=== PATIENT | female | born 1990 | race Two or more races ===

== ENCOUNTER 2018-10-05 11:05 | Observation (INO) | payer MEDICAID | END 2018-10-05 12:25 | disposition home or self-care (01) | DRG 563 | LOC: LDRP 11:05 | PROVIDERS: ADMIT Obstetrics & Gynecology; ATTEND Obstetrics & Gynecology | DX: O60.03 Preterm labor without delivery, third trimester (principal); Z3A.33 33 weeks gestation of pregnancy | CPT/HCPCS: 59025; 76815; 76817; 81002; G0378 ==

== ENCOUNTER 2018-11-09 19:21 | Observation (INO) | payer MEDICAID | END 2018-11-09 20:15 | disposition home or self-care (01) | DRG 566 | LOC: LDRP 19:21 | PROVIDERS: ADMIT Obstetrics & Gynecology; ATTEND Obstetrics & Gynecology | DX: O62.9 Abnormality of forces of labor, unspecified (principal); Z3A.38 38 weeks gestation of pregnancy | CPT/HCPCS: 59025; 81002; G0378 ==

== ENCOUNTER 2018-11-16 09:45 | Inpatient (IN) | payer MEDICAID ==
[~2018-11-16] VITALS: Ht 160 cm; Wt 83.9 kg
[2018-11-16] MEDS ORDERED: LACT. RINGERS/OXYTOCIN 20UNITS 1,000 ML IV SCH ×2 (10:02→17:02)
[2018-11-16] MEDS ORDERED: LIDOCAINE 2%HCL (LOCAL ANESTH.) INJ 20ML MDV ID PRN (10:15)
[2018-11-16] MEDS ORDERED: PENICILLIN G POT 5MIL/D5 50ML 50 ML IV ONE (10:15)
[2018-11-16] MEDS ORDERED: NALBUPHINE HCL 10 MG/1ml INJECTION IV PRN (10:15)
[2018-11-16] MEDS ORDERED: DERMOPLAST 60ML BOTTLE TOP PRN (10:15)
[2018-11-16] MEDS ORDERED: WITCH HAZEL-GLYCERIN PAD TOP PRN (10:15)
[2018-11-16] MEDS ORDERED: PHISODERM TOP SOLN 240ML BTL TOP PRN (10:15)
[2018-11-16] MEDS: LACTATED RINGER'S 1,000 ML IV SCH ×2 (10:15→18:02)
[2018-11-16 10:43] LABS: Basophils # (auto) 0 uL; Basophils % (auto) 0.7 % (0.0-2.0); Eosinophils # (auto) 0 uL; Eosinophils % (auto) 0.8 % (0.0-7.0); Hematocrit 39.8 % (36.0-46.0); Hemoglobin 13.4 g/dL (12.2-16.2); Lymphocytes # (auto) 2.5 uL; Mean Corpuscular Hemoglobin 29.4 pg (28.0-32.0); Mean Corpuscular Hgb Conc. 33.5 g/dL (32.0-36.0); Mean Corpuscular Volume 87.5 fL (80.0-100.0); Monocytes # (auto) 0.7 uL; Neutrophils # (auto) 2.9 uL; Neutrophils % (auto) 47.5 % (37.0-80.0); Nucleated Red Blood Cells % 0.1 %; Platelet Count (auto) 140 10^3/uL (140-450); Red Blood Cells 4.55 10^6/uL (4.0-5.20); Red Cell Distribution Width 14.6 % (11.8-14.3); White Blood Cell 6.2 10^3/uL (4.4-10.8)
[2018-11-16 11:01] LABS: Albumin 2.7 g/dL (3.4-5.0); BUN/Creatinine Ratio 9.2; Calcium 8.2 mg/dL (8.5-10.1); Potassium 3.6 mmol/L (3.5-5.1)
[2018-11-16 11:03] LABS: Bilirubin, Total 0.3 mg/dL (0.2-1.0); Urine Bacteria FEW /hpf (None Seen); Urine Blood Negative /uL (Negative); Urine Specific Gravity 1.015 (1.001-1.035); Urine WBC 26 /hpf (0 - 5)
[2018-11-16 11:05] LABS: INR 0.9 (0.9-1.15); Partial Thromboplastin Time 26.4 sec (23.78-33.04); Prothrombin Time 9.7 sec (9.27-12.13)
[2018-11-16] MEDS: PENICILLIN G POTASSIUM 2,500,000 UNITS in D5W 5% 50 ML IV SCH ×3 (14:32→22:15)
[2018-11-16] MEDS ORDERED: PROMETHAZINE HCL 25 MG/ML 1ML IM ONE (15:45)
[2018-11-16] MEDS ORDERED: PROMETHAZINE HCL 25 MG/ML 1ML IV ONE (16:00)
[2018-11-16] MEDS ORDERED: ePHEDrine SULFATE 50 MG/ML AMP IV ONE (16:45)
[2018-11-16] MEDS ORDERED: NALOXONE HCL 0.4 MG/ML VIAL IV ONE (16:45)
--- NOTE | 2018-11-16 20:00 | NUR ---
Teaching: Reviewed information in [facility] booklet with patient. Discussed benefits of and risks associated with not . Discussed different positions, proper latch, feeding cues, and baby-led . Provided information of medication side effects related to . All questions and concerns addressed at this time. Patient verbalized understanding of information. Patient encouraged to breastfeed. Benefits of and the risk of providing formula to infant was discussed. Patient verbalized understanding of the benefits and is aware of risk and insists on bottle-feeding, stating that she "will breastfeed tomorrow". Formula provided and instruction on formula preparation from the [facility] booklet reviewed with patient.
--- NOTE | 2018-11-16 21:02 | NUR ---
Ambulation: Patient OOB with standby assistance by RN. Patient ambulated to bathroom with steady gait. Patient able to void without difficulty. [facility] teaching provided with returned demonstration by patient. Clean gown provided and bed linen changed. Patient ambulated back to bed with steady gait and no distress noted.
[2018-11-16] MEDS: fentaNYL W ROPIVACAINE 150 ML EPI SCH (23:08)
[2018-11-16] MEDS: IBUPROFEN 600 MG TAB PO PRN (23:22)
[2018-11-17] MEDS: LACTATED RINGER'S 1,000 ML IV SCH (02:02)
[2018-11-17] MEDS: PENICILLIN G POTASSIUM 2,500,000 UNITS in D5W 5% 50 ML IV SCH ×2 (02:15→06:15)
[2018-11-17] MEDS: fentaNYL W ROPIVACAINE 150 ML EPI SCH (03:09)
[2018-11-17] MEDS: IBUPROFEN 600 MG TAB PO PRN ×6 (03:16→20:12)
[2018-11-17 03:20] VITALS: BP 121/57
[2018-11-17 11:00] VITALS: BP 114/55
[2018-11-17 15:00] VITALS: BP 133/62
[2018-11-17 19:00] VITALS: BP 118/56
--- NOTE | 2018-11-17 20:00 | NUR ---
Discharge: Discharge instructions given as ordered. Pt encouraged to follow up with [facility] as instructed. All questions and concerns addressed. Patient verbalized understanding. Medication reconciliation completed and copy given to patient. PT refuses all vaccinations. Patient encouraged to prepare to depart unit.
--- NOTE | 2018-11-17 20:10 | NUR ---
RX called into [facility] pharmacy, ordered by DEEPALI LEWIS, Ibuprofen 800mg Q8 hours PRN PAIN . #20
[2018-11-17 20:24] VITALS: BP 118/56
--- NOTE | 2018-11-17 20:24 | NUR ---
Discharge: Patient taken to vehicle via wheelchair with all personal belongings, accompanied by Nelsy Dunlap and family member. No distress noted at time of departure, no adverse changes in status since initial assessment.
[2018-11-19 14:11] LABS: RPR Non Reactive (Non Reactive)
== END 2018-11-17 20:24 | disposition home or self-care (01) | DRG 560 ==
LOC: LDRP 09:45
PROVIDERS: ADMIT Specialist; ATTEND Specialist
PROC: 10E0XZZ Delivery of Products of Conception, External Approach (ICD-10-PCS; principal; 2018-11-16)
DX: O69.81X0 Labor and delivery complicated by cord around neck, without compression, not applicable or unspecified (principal); O99.824 Streptococcus B carrier state complicating childbirth; Z37.0 Single live birth; Z3A.39 39 weeks gestation of pregnancy
CPT/HCPCS: 36415; 59025; 59409; 80053; 81001; 81002; 85025; 85610; 85730; 86592; 86850; 86900; 86901; 96361; 96365; 96374; G0378; J2540; J2590; J3010; J7060

== ENCOUNTER 2019-10-15 11:12 | Inpatient (IN) | payer MEDICAID ==
[~2019-10-15] VITALS: Ht 160 cm; Wt 76.1 kg
[2019-10-15] MEDS ORDERED: SODIUM CHLORIDE 0.9% 1,000 ML IVB ONE (11:50)
[2019-10-15 12:26] LABS: Basophils # (auto) 0 uL; Basophils % (auto) 0.5 % (0.0-2.0); Eosinophils # (auto) 0.1 uL; Eosinophils % (auto) 1.2 % (0.0-7.0); Hematocrit 34.2 % (36.0-46.0); Hemoglobin 11.1 g/dL (12.2-16.2); Lymphocytes # (auto) 2.2 uL; Lymphocytes % (auto) 42.4 % (10.0-50.0); Mean Corpuscular Hemoglobin 27.7 pg (28.0-32.0); Mean Corpuscular Hgb Conc. 32.6 g/dL (32.0-36.0); Monocytes # (auto) 0.5 uL; Monocytes % (auto) 8.8 % (0.0-12.0); Neutrophils # (auto) 2.5 uL; Neutrophils % (auto) 47.1 % (37.0-80.0); Nucleated Red Blood Cells % 0.1 %; Platelet Count (auto) 298 10^3/uL (140-450); Red Blood Cells 4.02 10^6/uL (4.0-5.20); Red Cell Distribution Width 14.5 % (11.8-14.3); White Blood Cell 5.2 10^3/uL (4.4-10.8)
[2019-10-15 12:48] LABS: Albumin 3.2 g/dL (3.4-5.0); Calcium 8.2 mg/dL (8.5-10.1); Potassium 3.5 mmol/L (3.5-5.1)
[2019-10-15 12:52] LABS: BUN/Creatinine Ratio 9.7; Bilirubin, Total 0.2 mg/dL (0.2-1.0); Total Protein 7.3 g/dL (6.4-8.2)
[2019-10-15] MEDS ORDERED: NITROGLYCERIN 0.4 MG SL TAB SL PRN (18:00)
[2019-10-15] MEDS ORDERED: MORPHINE SULF INJ 2 MG/ML SYRINGE 1ML IV PRN (18:00)
[2019-10-15] MEDS: LACTATED RINGER'S 1,000 ML IV SCH ×2 (18:42→22:39)
--- NOTE | 2019-10-15 19:55 | NUR ---
[facility] admit from ER FREEMAN SPURADRI admitted to [facility]. Patient oriented to Jesus Balderas, primary RN, unit, room, bed, and unit policies regarding patient care and visiting hours. Patient weighed by bedscale and encouraged to call if they need something. Patient is A/O x 4 and resting comfortably in bed. The patient denies any pain at the moment. All questions and concerns addressed, patient verbalized understanding.
[2019-10-15 20:06] LABS: INR 1.01 (0.9-1.15); Partial Thromboplastin Time 26.8 sec (23.64-32.05)
[2019-10-15 22:00] VITALS: BP 136/81
[2019-10-15] MEDS: ceFAZolin 1GM/50ML 50 ML IV SCH (22:39)
[2019-10-16 05:00] VITALS: BP 103/50
[2019-10-16] MEDS: ceFAZolin 1GM/50ML 50 ML IV SCH ×2 (06:33→14:05)
--- NOTE | 2019-10-16 08:49 | NUR ---
CAME AND DISCUSSED RISKS AND BENEFITS OF PROCEDURE WITH PATIENT. PT SIGNED CONSENT FORMS, CHECKLIST FINISHED. PT BS 101. CALLED HOUSE MELISSA ALEJO REPORTS PT IS SCHEDULED FOR PROCEDURE AT 10 AM.
[2019-10-16 08:59] LABS: Urine Bacteria FEW /hpf (None Seen); Urine Blood Negative /uL (Negative); Urine Specific Gravity 1.016 (1.001-1.035); Urine WBC 1 /hpf (0 - 5)
[2019-10-16 09:23] VITALS: BP 105/60
--- NOTE | 2019-10-16 10:25 | NUR ---
PT LEFT FLOOR FOR PROCEDURE VIA BED, NO DISTRESS NOTED.
[2019-10-16] MEDS ORDERED: ceFAZolin 1GM/50ML 50 ML IV ONE (10:53)
[2019-10-16] MEDS ORDERED: LIDOCAINE 2% (LOCAL ANESTH.) PF 5ml SDV ONE (10:54)
[2019-10-16] MEDS ORDERED: PROPOFOL 10 MG/ML 20 ML IV ONE (10:54)
[2019-10-16] MEDS ORDERED: DexAMETHasone SOD PHOS 10MG/1ML VIAL INJ ONE (11:05)
[2019-10-16] MEDS ORDERED: ONDANSETRON HCL 4 MG/2 ML VIAL ONE (11:05)
[2019-10-16] MEDS ORDERED: OXYTOCIN 10UNIT/ML 1ML VIAL ONE (11:15)
[2019-10-16] MEDS ORDERED: ONDANSETRON HCL 4 MG/2 ML VIAL IV PRN (11:30)
[2019-10-16] MEDS ORDERED: METOCLOPRAMIDE HCL 5MG/ml INJ 2ml VIAL IV PRN (11:45)
[2019-10-16] MEDS: HYDROmorphone HCL 2 MG/ML VL IV PRN ×2 (11:45→11:57)
[2019-10-16] MEDS ORDERED: hydrALAZINE HCL 20 MG/ML VL IV PRN (11:45)
[2019-10-16] MEDS ORDERED: LABETALOL HCL 5 MG/ML 4ML SYRINGE IV PRN (11:45)
[2019-10-16 12:15] VITALS: BP 113/62
--- NOTE | 2019-10-16 12:31 | NUR ---
PT RETURNED TO FLOOR FROM O.R. NO DISTRESS NOTED. PT REPORTS NO PAIN AT THIS TIME. VITALS: 98.0, 100%, RR 18, 119/62, HR 72. PT NATALIE PAD HAS 2 SMALL SPOTS OF BLOOD, NO SIGNIFICANT BLEEDING NOTED. PT INSTRUCTED TO USE CALL LIGHT IF BLEEDING HEAVILY AND TO NOTIFY NURSE. WILL CONTINUE TO MONITOR.
[2019-10-16] MEDS: LACTATED RINGER'S 1,000 ML IV SCH (14:05)
--- NOTE | 2019-10-16 15:54 | NUR ---
Discharge instructions given as ordered. Encourage to follow up with PMD as instructed. All questions and concerns addressed. Patient verbalized understanding. Medication reconciliation form completed and copy given to patient. IV removed with catheter intact, pressure dressing applied. Patient taken to vehicle via wheelchair with all personal belongings, accompanied by staff and family members. No distress noted at time of departure.
--- NOTE | 2019-10-16 16:34 | NUR ---
DR DUMONT WAS ON PATIENT LIST PHYSICIAN FOR THE DAY AND WAS ALSO DISCHARGING
== END 2019-10-16 15:00 | disposition home or self-care (01) | DRG 544 ==
LOC: ER 11:12 → OVERFLOW 11:13 → CENTRAL 20:01
PROVIDERS: ADMIT Specialist; ATTEND Specialist
PROC: 10D17ZZ Extraction of Products of Conception, Retained, Via Natural or Artificial Opening (ICD-10-PCS; principal; 2019-10-16 10:56)
DX: O03.4 Incomplete spontaneous abortion without complication (principal)
CPT/HCPCS: 36415; 76801; 80053; 81001; 82962; 84702; 85025; 85610; 85730; 86850; 86900; 86901; G0378; J0690; J1100; J2001; J2405; J2704